=== PATIENT | male | born 1990 | race African-American/Black ===

== ENCOUNTER → 2016-12-08 | Emergency (ER) | payer SELFPAY ==
[~2016-12-08] VITALS: Ht 182.9 cm; Wt 74.8 kg
[2016-12-08 16:28] VITALS: BP 128/75
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
== END | disposition left against medical advice (07) ==
LOC: EDBD 16:33 → EMR 16:55
DX: R41.82 Altered mental status, unspecified (principal); Z72.811 Adult antisocial behavior; Z53.29 Procedure and treatment not carried out because of patient's decision for other reasons; F17.200 Nicotine dependence, unspecified, uncomplicated
CPT/HCPCS: 99283